=== PATIENT | female | born 1930 | race Caucasian/White ===

== ENCOUNTER 2016-08-25 09:08 | Emergency (ER) | payer OTHER, MEDICARE ==
[2016-08-25 09:26] VITALS: TEMP 97.7; BMI 21.3
--- NOTE | 2016-08-25 09:30 | PDOC ---
History of Present Illness <Kapil Barajas - Last Filed: 08/25/16 11:03> - General History Source: Patient, Family Exam Limitations: No Limitations - History of Present Illness Initial Comments: 08/25/16 11:15 The patient is an 85 year old female, accompanied by family, with no significant past medical history who presents for further evaluation of head pain for a couple days. The patient states that a couple of days ago she was getting out of bed when she slipped and hit her head on the floor. She reports right sided head and neck pain. The patient reports associated nausea and dizziness. The patient notes that she did not take anything at home to try and treat pain. PCP: Dr. Rahul Lima [phone] <Vel Lucas - Last Filed: 08/25/16 11:17> - General Chief Complaint: Injury Stated Complaint: FALL Past History - Past Medical History Cancer: Yes (breast) - Immunization History Immunization Up to Date: Yes - Psycho/Social/Smoking Cessation Hx Suicidal Ideation: No Smoking History: Never smoked <Kapil Barajas - Last Filed: 08/25/16 11:03> <Vel Lucas - Last Filed: 08/25/16 11:17> - Past Medical History Allergies/Adverse Reactions: Allergies Allergy/AdvReac Type Severity Reaction Status Date / Time No Known Allergies Allergy Verified 08/25/16 09:26 Home Medications: Ambulatory Orders B12 09/18/12 Calcium Carb/Vitamin D3/Vit K1 [Calcium + D Soft Chewable Tab] 1 each PO Loratadine [Claritin] 5 mg PO 09/18/12 Multivit-Min/FA/Lutein/Zeaxant [Icaps Mv Tablet] 1 each PO 09/18/12 Celia 128 09/18/12 Probiotics 09/18/12 Selenium 200 mcg PO capsule 09/18/12 Vit D 09/18/12 NK [No Known Home Medication] 07/24/15 Review of Systems - Review of Systems Able to Perform ROS?: Yes Comments:: 08/25/16 11:16 GENERAL/CONSTITUTIONAL: No fever or chills. No weakness. HEAD, EYES, EARS, NOSE AND THROAT: Yes head pain, neck pain. No change in vision. No ear pain or discharge. No sore throat. CARDIOVASCULAR: No chest pain or shortness of breath. RESPIRATORY: No cough, wheezing, or hemoptysis. GASTROINTESTINAL: Yes dizziness, nausea. No vomiting, diarrhea or constipation. GENITOURINARY: No dysuria, frequency, or change in urination. MUSCULOSKELETAL: No joint or muscle swelling or pain. No neck or back pain. SKIN: No rash NEUROLOGIC: No headache, vertigo, loss of consciousness, or change in strength/ sensation. ENDOCRINE: No increased thirst. No abnormal weight change. HEMATOLOGIC/LYMPHATIC: No anemia, easy bleeding, or history of blood clots. ALLERGIC/IMMUNOLOGIC: No hives or skin allergy. <Vel Lucas - Last Filed: 08/25/16 11:17> *Physical Exam - Vital Signs Last Vital Signs Temp Pulse Resp BP Pulse Ox 97.7 F 74 18 158/70 100 08/25/16 09:23 08/25/16 09:23 08/25/16 09:23 08/25/16 09:23 08/25/16 09:23 <Kapil Barajas - Last Filed: 08/25/16 11:03> - Vital Signs Last Vital Signs Temp Pulse Resp BP Pulse Ox 97.7 F 74 18 158/70 100 08/25/16 09:23 08/25/16 09:23 08/25/16 09:23 08/25/16 09:23 08/25/16 09:23 - Physical Exam Comments: 08/25/16 11:16 GENERAL: Awake, alert, and fully oriented, in no acute distress HEAD: (+) Small contusion behind the right ear. EYES: PERRLA, EOMI, sclera anicteric, conjunctiva clear ENT: Auricles normal inspection, hearing grossly normal, nares patent, oropharynx clear without exudates. Moist mucosa NECK: Normal ROM, supple, no lymphadenopathy, JVD, or masses LUNGS: Breath sounds equal, clear to auscultation bilaterally. No wheezes, and no crackles HEART: Regular rate and rhythm, normal S1 and S2, no murmurs, rubs or gallops ABDOMEN: Soft, nontender, normoactive bowel sounds. No guarding, no rebound. No masses EXTREMITIES: Normal range of motion, no edema. No clubbing or cyanosis. No cords, erythema, or tenderness NEUROLOGICAL: Cranial nerves II through XII grossly intact. Normal speech, normal gait SKIN: Warm, Dry, normal turgor, no rashes or lesions noted. <Vel Lucas - Last Filed: 08/25/16 11:17> ED Treatment Course - RADIOLOGY Radiograph Interpretation: 08/25/16 11:17 EXAM#: TYPE/EXAM: RESULT: [id number] CT/HEAD CT WITHOUT CONTRAST Clinical history : Head injury 2 days ago. Scalp contusion behind right ear. COMPARISON: MRI [address] scan 01/22/2011. Contiguous transaxial images are obtained from the skull base to the vertex without the intravenous use of iodinated contrast material. Sagittal and coronal reconstructions were performed. There are no areas of diminished or increased attenuation seen. There is no ventricular compression or extracerebral fluid collection seen. There is no evidence of a shift of the midline structures. Generalized involutional and periventricular white matter changes are noted. IMPRESSION: Normal noncontrast CT of the brain except for involutional and periventricular white matter changes. Reported By: Anthony Huang MD 08/25/16 1019 - Medications Given in the ED: ED Medications Discontinued Medications Generic Name Dose Route Start Last Admin Trade Name Freq PRN Reason Stop Dose Admin Ondansetron HCl 4 mg 08/25/16 09:33 08/25/16 09:35 Zofran Odt - SL 08/25/16 09:34 4 mg ONCE ONE Administration <Vel Lucas - Last Filed: 08/25/16 11:17> *DC/Admit/Observation/Transfer - Discharge Dispostion Admit: No - Attestations Physician Attestion: 08/25/16 09:30 I, Dr. Kapil Barajas, attest that this document has been prepared under my direction and personally reviewed by me in its entirety. I further attest, that it accurately reflects all work, treatment, procedures and medical decision -making performed by me. <Kapil Baraajs - Last Filed: 08/25/16 11:03> - Attestations Scribe Attestion: 08/25/16 11:16 Documentation prepared by Vel Lucas, acting as medical engineer for Kapil Barajas DO. <Vel Lucas - Last Filed: 08/25/16 11:17> Diagnosis at time of Disposition: Contusion of occipital region of scalp Qualifiers: Encounter type: initial encounter Qualified Code(s): S00.03XA - Contusion of scalp, initial encounter Blunt head trauma Qualifiers: Encounter type: initial encounter Qualified Code(s): S09.8XXA - Other specified injuries of head, initial encounter - Referrals Referrals: Rahul Lima MD [Primary Care Provider] - - Patient Instructions Printed Discharge Instructions: DI for Closed Head Injury, DI for Contusion Additional Instructions: Mrs Peña, So Sorry that you fell. I am happy that your CT Scan was read as normal. If you need anything or you have any problems feel free to return to us for care. Best- Dr. Kapil Barajas
[2016-08-25] MEDS ORDERED: ONDANSETRON *ODT* 4 MG TABLET ONE (09:31)
[2016-08-25] MEDS ORDERED: ONDANSETRON *ODT* 4 MG TABLET SL ONE (09:33)
[2016-08-25 12:04] VITALS: BP 149/82; PULSE 68
== END 2016-08-25 11:40 | disposition home or self-care (01) ==
LOC: JER 09:08
DX: S00.03XA Contusion of scalp, initial encounter (principal); W06.XXXA Fall from bed, initial encounter; Y93.89 Activity, other specified; Y92.122 Bedroom in nursing home as the place of occurrence of the external cause; Z85.3 Personal history of malignant neoplasm of breast
CPT/HCPCS: 70450-TC; 99281-25

== ENCOUNTER 2016-12-15 14:52 | Emergency (ER) | payer OTHER, MEDICARE ==
[2016-12-15 15:09] VITALS: BP 137/74; PULSE 73; TEMP 98.4; BMI 19.3
[2016-12-15] MEDS ORDERED: OXYCODONE/APAP 5/325MG COMBO TABLET ONE (16:29)
[2016-12-15] MEDS ORDERED: ACETAMINOPHEN 325 MG TABLET (FP) ONE (16:29)
[2016-12-15] MEDS ORDERED: ACETAMINOPHEN 325 MG TABLET (FP) PO ONE (16:34)
[2016-12-15] MEDS ORDERED: OXYCODONE/APAP 5/325MG COMBO TABLET PO ONE (16:34)
[2016-12-15] MEDS ORDERED: DIPHTH,PERTUSS(ACELL),TET 0.5 ML DISP.SYRIN IM ONE (16:34)
--- NOTE | 2016-12-15 18:04 | PDOC ---
History of Present Illness - General Chief Complaint: Injury Stated Complaint: INJURY Time Seen by Provider: 12/15/16 15:22 History Source: Patient Exam Limitations: No Limitations - History of Present Illness Initial Comments: 12/15/16 17:09 86-year-old female presents to the ED status post mechanical fall. Patient states was on her way to get her hair done when she tripped on uneven pavement landing on her right wrist and right face. Patient states had no LOC but required assistance to stand up and was ambulating at the scene. Patient was brought in by EMS with her right wrist and forearm splinted. Patient complaining of pain to the area and denies previous injury to the affected area. Patient also states unsure of her last tetanus and is also complaining of right cheek tenderness. Patient currently denies chest pain, shortness of breath , headache, visual changes, dizziness, or nausea. Occurred: reports: just prior to arrival Severity: reports: moderate Pain Location: reports: face, upper extremity Method of Injury: Yes: fall Modifying Factors: improves with: None Loss of Consciousness: no loss of consciousness Associated Symptoms (Fall): other Past History - Travel Traveled outside of the country in the last 30 days: No Close contact w/someone who was outside of country & ill: No - Past Medical History Allergies/Adverse Reactions: Allergies Allergy/AdvReac Type Severity Reaction Status Date / Time No Known Allergies Allergy Verified 08/25/16 09:26 Cancer: Yes (breast) - Immunization History Immunization Up to Date: Yes - Psycho/Social/Smoking Cessation Hx Suicidal Ideation: No Smoking History: Never smoked Have you smoked in the past 12 months: No Information on smoking cessation initiated: No Hx Alcohol Use: No Drug/Substance Use Hx: No Substance Use Type: None Patient Lives Alone: No Lives with/in: assisted living Trauma Specific PMHX - Complaint Specific PMHX Arthritis: No Back Injury: No Neck Injury: No Hx Sacro Iliac Joint Dysfunction: No Review of Systems - Review of Systems Able to Perform ROS?: Yes Constitutional: No: Symptoms Reported HEENTM: No: Symptoms Reported Respiratory: No: Symptoms reported Cardiac (ROS): No: Symptoms Reported ABD/GI: No: Symptoms Reported Musculoskeletal: Yes: Joint Pain (right wrist and right shoulder and right face) Integumentary: Yes: Bruising (rt face) Neurological: No: Symptoms reported Hematologic/Lymphatic: No: Symptoms Reported *Physical Exam - Vital Signs Last Vital Signs Temp Pulse Resp BP Pulse Ox 98.4 F 73 20 137/74 99 12/15/16 15:04 12/15/16 15:04 12/15/16 15:04 12/15/16 15:04 12/15/16 15:04 - Physical Exam General Appearance: Yes: Nourished, Appropriately Dressed. No: Apparent Distress HEENT: positive: EOMI, JOCE, TMs Normal (no hemotympanum), Pharynx Normal Neck: positive: Tender, Supple. negative: Decreased range of motion Respiratory/Chest: positive: Lungs Clear, Normal Breath Sounds. negative: Respiratory Distress, Accessory Muscle Use Cardiovascular: positive: Regular Rhythm, Regular Rate. negative: Murmur Gastrointestinal/Abdominal: positive: Soft. negative: Tenderness Extremity: positive: Normal Capillary Refill, Other (noted tenderness over anterior aspect of right shoulder without limited range of motion or crepitus). negative: Normal Range of Motion (noted depressed deformity to dorsal aspect of wrist. ), Pedal Edema Integumentary: positive: Swelling (right orbital floor ), Bruising (to right orbital floor and rt mandible. ), Other (noted 1 cm laceration to right upper lip without vermilion border involvement. ) Neurologic: positive: Motor Strength 5/5 (ambulaory) ED Treatment Course - RADIOLOGY Radiology Studies Ordered: Category Date Time Status CERVICAL SPINE CT W/O CONTR [CT] Stat CT Scan 12/15/16 16:[address] W/O CONTRAST [CT] Stat CT Scan 12/15/16 16:[address] WITHOUT CONTRAST [CT] Stat CT Scan 12/15/16 16:35 Ordered FOREARM- RIGHT [RAD] Stat Radiology 12/15/16 16:35 Ordered SHOULDER-RIGHT [RAD] Stat Radiology 12/15/16 16:35 Ordered WRIST- RIGHT [RAD] Stat Radiology 12/15/16 16:35 Ordered - Medications Given in the ED: ED Medications Discontinued Medications Generic Name Dose Route Start Last Admin Trade Name Freq PRN Reason Stop Dose Admin Acetaminophen 650 mg 12/15/16 16:34 12/15/16 16:49 Tylenol - PO 12/15/16 16:35 650 mg ONCE ONE Administration Diphtheria/Tetanus/Acell Pertussis 0.5 ml 12/15/16 16:34 12/15/16 17:19 Boostrix - IM 12/15/16 16:35 0.5 ml .ONCE ONE Administration Oxycodone/Acetaminophen 1 combo 12/15/16 16:34 12/15/16 16:49 Percocet 5/325 - PO 12/15/16 16:35 1 combo ONCE ONE Administration Medical Decision Making - Medical Decision Making 12/15/16 17:33 Pt post mechanical fall landing on her right wrist and right face. Patient with ecchymosis to right orbital floor and right mandible Along with the laceration to the right upper lip without vermilion border involvement. Patient with noted depressed deformity to the right wrist with tenderness to the dorsal aspect. Patient ordered for head CT, cervical CT, facial CT, tetanus, right forearm right shoulder and right wrist x-ray. Patient also ordered for 1 Percocet and 2 Tylenol. 12/15/16 18:37
--- NOTE | 2016-12-15 19:36 | PDOC ---
*Physical Exam - Vital Signs Last Vital Signs Temp Pulse Resp BP Pulse Ox 98.4 F 73 20 137/74 99 12/15/16 15:04 12/15/16 15:04 12/15/16 15:04 12/15/16 15:04 12/15/16 15:04 - Physical Exam General Appearance: Yes: Appropriately Dressed. No: Apparent Distress Neck: positive: Trachea midline, Supple Respiratory/Chest: positive: Lungs Clear, Normal Breath Sounds. negative: Respiratory Distress Cardiovascular: positive: Regular Rhythm, Regular Rate, S1, S2. negative: Edema Extremity: positive: Tender (right wrist), Swelling (right wrist). negative: Normal Range of Motion (decreased ROM of right wrist and flexion of 3rd and 4th digit of right hand) Integumentary: positive: Other (laceration to lateral upper lip) ED Treatment Course - Medications Given in the ED: ED Medications Discontinued Medications Generic Name Dose Route Start Last Admin Trade Name Freq PRN Reason Stop Dose Admin Acetaminophen 650 mg 12/15/16 16:34 12/15/16 16:49 Tylenol - PO 12/15/16 16:35 650 mg ONCE ONE Administration Diphtheria/Tetanus/Acell Pertussis 0.5 ml 12/15/16 16:34 12/15/16 17:19 Boostrix - IM 12/15/16 16:35 0.5 ml .ONCE ONE Administration Oxycodone/Acetaminophen 1 combo 12/15/16 16:34 12/15/16 16:49 Percocet 5/325 - PO 12/15/16 16:35 1 combo ONCE ONE Administration Medical Decision Making - Medical Decision Making Received patient from [facility]. CT of head, face and neck pending. Xrays of right wrist, forearm pending 12/15/16 21:23 CT of head, face and neck without acute pathology. 1 cm lac repair to right lateral upper lip. Irrigated with 50cc sterile water. Anesthesia with 2cc 2%lidocaine Site cleansed with chlorhexadine 5.0 sutures x2 placed in right upper lip Patient tolerated procedure well Xray wet read by me: minimally displaced right radial fracture. Closed reduction performed under traction. PERSONAL CHEF made Sugar tong splint applied with immobilized extremity placed in sling. Pt requesting discharge. She is refusing repeat imaging. PERSONAL CHEF made pt aware that official read of xrays are not needed after repeat films. Continues to refuse. Ortho f/u within 1 week. 12/15/16 22:24 *DC/Admit/Observation/Transfer Diagnosis at time of Disposition: Colles' fracture of right radius, initial encounter for closed fracture Qualifiers: Encounter type: initial encounter Qualified Code(s): S52.531A - Colles' fracture of right radius, initial encounter for closed fracture Laceration of lip without complication Qualifiers: Encounter type: initial encounter Qualified Code(s): S01.511A - Laceration without foreign body of lip, initial encounter - Discharge Dispostion Disposition: [facility] Admit: No - Prescriptions Prescriptions: Oxycodone HCl/Acetaminophen [Percocet 5-325 mg Tablet] 1 - 2 tab PO Q6H #20 tab MDD 8 - Referrals Referrals: Rahul Lima MD [Primary Care Provider] - Mariusz Moreau MD [Staff Physician] - - Patient Instructions Printed Discharge Instructions: DI for Wrist Fracture, DI for Laceration Repair Additional Instructions: Please call Dr Moreau at for appointment within 1 week. Take Percocet as prescribed for pain. Drink plenty of fluids. Return to the ER for increased pain, loss of feeling, change in color, of loss of movement in right forearm/hand or drainage from sutures or any other complaint.
== END 2016-12-15 22:51 ==
LOC: JER 14:52
PROC: 0CQ0XZZ Repair Upper Lip, External Approach (ICD-10-PCS; principal; 2016-12-15)
PROC: 2W3CX1Z Immobilization of Right Lower Arm using Splint (ICD-10-PCS; 2016-12-15)
PROC: 3E0234Z Introduction of Serum, Toxoid and Vaccine into Muscle, Percutaneous Approach (ICD-10-PCS; 2016-12-15)
DX: S52.531A Colles' fracture of right radius, initial encounter for closed fracture (principal); S01.511A Laceration without foreign body of lip, initial encounter; W18.39XA Other fall on same level, initial encounter; Y93.89 Activity, other specified; Y92.480 Sidewalk as the place of occurrence of the external cause; Y99.8 Other external cause status
CPT/HCPCS: 12011-25; 29125; 70450-TC; 70486-TC; 72125-TC; 73030-TC-RT; 73090-TC-RT; 73110-TC-RT; 90471; 90715; 99282-25

== ENCOUNTER 2018-03-01 11:27 | Emergency (ER) | payer OTHER, MEDICARE ==
[2018-03-01 11:41] VITALS: BMI 17.7
--- NOTE | 2018-03-01 11:57 | PDOC ---
Attending Attestation - HPI HPI: This patient is an 87 year old female with a PMHx of Breast Ca s/p unilateral mastectomy, mild dementia who was BIBA from [facility] assisted living for 3 days of nausea and vomiting.On Sunday she was given 8mg Zofran qd at urgent care but they didnt find anything necessarily wrong with her. She states she has been eating well and was able to keep her food down last night and this morning however she says that she has been vomiting 3-5x/day. The patient states the zofran has not helped very much and she has been persistently nauseous despite taking it once a day. She also reports constipation for the past month. Allergies: dust mites She denies any fevers, body aches, URI sx, cough, nasal congestion, recent infections, neck pain, or diarrhea. No other urinary or other bowel complaints. <Chantel Myers - Last Filed: 03/01/18 12:45> - Physicial Exam PE: 03/03/18 10:13 Agree with resident exam. Patient is alert and in no acute distress. Lungs are clear. Heart has regular rate and rhythm. Abdomen is soft, non tender and non distended. - Medical Decision Making 03/03/18 10:14 Pt presents to the ED complaining of nausea and vomiting that have been persistent for 4 days. Denies other complaints. Abdominal exam is benign. Labs are within normal limits except for ketones in the urine. CT is negative. Patient feels improved in the ED and is tolerating PO after zofran and reglan. Daughter strongly desires to take the patient home. She understands that we do not know why her mother is vomiting and that she needs follow up. She will follow up with her PMD and gastroneterology. She will return to the ED for persistent or worsening symptoms. <Анна Gore - Last Filed: 03/03/18 10:16>
--- NOTE | 2018-03-01 12:15 | PDOC ---
History of Present Illness <Chantel Myers - Last Filed: 03/01/18 14:06> - General History Source: Patient Exam Limitations: No Limitations - History of Present Illness Initial Comments: Mrs. Kellogg is a relatively healthy 87 yo F with a pmh hx of Breast Ca s/p unilateral mastectomy and a childhood hx of Asthma who presents from [address] [place] [address] to the [facility] ER with the CC of nausea and vomiting since Sunday. She has been vomiting 3-5 times a day which she describes as yellow in color. She denies any blood or bile in the vomit. She went to the urgent care clinic on Sunday who gave her 8 mg of oral zofran to take once a day for the nausea and vomiting. The patient states the zofran has not helped very much and she has been persistently nauseous despite taking it once a day. She endorses mild constipation for the past few weeks but denies any diarrhea. She denies any recent fevers, chills, or infections. Denies chest pain, SOB, or difficulty breathing. Denies neck pain or blurry vision. Denies abdominal pain. Denies dysuria, frequency, or urgency. PCP: Dr. Thacker Allergies: Dust mites Social Hx: Drinks less than a cup of wine with dinners twice a week. Denies cigarette or illicit drug usage. <Yassine Reyes - Last Filed: 03/01/18 15:54> - General Chief Complaint: Nausea/Vomiting Stated Complaint: NAUSEA Time Seen by Provider: 03/01/18 11:54 Past History <Chantel Myers - Last Filed: 03/01/18 14:06> - Past Medical History Cancer: Yes (breast) COPD: No Dementia: Yes - Immunization History Immunization Up to Date: Yes - Suicide/Smoking/Psychosocial Hx Smoking History: Unknown if ever smoked Have you smoked in the past 12 months: No Hx Alcohol Use: No Drug/Substance Use Hx: No Substance Use Type: None <Yassine Reyes - Last Filed: 03/01/18 15:54> - Past Medical History Allergies/Adverse Reactions: Allergies Allergy/AdvReac Type Severity Reaction Status Date / Time No Known Allergies Allergy Verified 03/01/18 11:35 Home Medications: Ambulatory Orders Memantine HCl [Namenda Xr] 28 mg PO DAILY 03/01/18 Metoclopramide HCl [Reglan] 10 mg PO PRN #10 tablet 03/01/18 Mirabegron [Myrbetriq] 25 mg PO DAILY 03/01/18 Montelukast Sodium [Singulair] 10 mg PO HS 03/01/18 Ondansetron [Zofran Odt -] 4 mg SL TID PRN 03/01/18 Review of Systems - Review of Systems Comments:: CONSTITUTIONAL: Absent: fever, chills, diaphoresis, generalized weakness, malaise, loss of appetite HEENT: Present: Left eye pruritis. Absent: rhinorrhea, nasal congestion, throat pain, throat swelling, difficulty swallowing, mouth swelling, ear pain, eye pain, visual Changes CARDIOVASCULAR: Absent: chest pain, syncope, palpitations, irregular heart rate, lightheadedness , peripheral edema RESPIRATORY: Absent: cough, shortness of breath, dyspnea with exertion, orthopnea, wheezing, stridor, hemoptysis GASTROINTESTINAL: Present: Nausea, vomiting, constipation. Absent: abdominal pain, abdominal distension, diarrhea, melena, hematochezia GENITOURINARY: Absent: dysuria, frequency, urgency, hesitancy, hematuria, flank pain, genital pain MUSCULOSKELETAL: Absent: myalgia, arthralgia, joint swelling SKIN: Absent: rash, itching, pallor HEMATOLOGIC/IMMUNOLOGIC: Absent: easy bleeding, easy bruising, lymphadenopathy, frequent infections ENDOCRINE: Absent: unexplained weight gain, unexplained weight loss, heat intolerance, cold intolerance NEUROLOGIC: Absent: headache, focal weakness or paresthesias, dizziness, unsteady gait, seizure, mental status changes, bladder or bowel incontinence PSYCHIATRIC: Absent: anxiety, depression, suicidal or homicidal ideation, hallucinations. <Yassine Reyes - Last Filed: 03/01/18 15:54> *Physical Exam - Vital Signs Last Vital Signs Temp Pulse Resp BP Pulse Ox 98.4 F 77 18 153/75 97 03/01/18 11:40 03/01/18 11:40 03/01/18 11:40 03/01/18 11:40 03/01/18 11:40 <Chantel Myers - Last Filed: 03/01/18 14:06> - Vital Signs Last Vital Signs Temp Pulse Resp BP Pulse Ox 98.4 F 77 18 153/75 97 03/01/18 11:40 03/01/18 11:40 03/01/18 11:40 03/01/18 11:40 03/01/18 11:40 - Physical Exam Comments: GENERAL: Well developed, well nourished. Awake and alert. No acute distress. HEENT: There is mild greenish discharge on the lower left eye. No conjunctival injection. Normocephalic, atraumatic. PERRLA, EOMI. No conjunctival pallor. Sclera are non- icteric. Moist mucous membranes. Oropharynx is clear. NECK: Supple. Full ROM. No JVD. No thyromegaly. No lymphadenopathy. CARDIOVASCULAR: Regular rate and rhythm. No murmurs, rubs, or gallops. Distal pulses are 2+ and symmetric. PULMONARY: No evidence of respiratory distress. Lungs clear to auscultation bilaterally. No wheezing, rales or rhonchi. ABDOMINAL: Soft. Non-tender. Non-distended. No rebound or guarding. No organomegaly. Normoactive bowel sounds. MUSCULOSKELETAL Normal range of motion at all joints. There are a few bony deformities on her hands. No bony tenderness. No CVA tenderness. EXTREMITIES: No cyanosis. No clubbing. No edema. No calf tenderness. SKIN: Warm and dry. Normal capillary refill. No rashes. No jaundice. NEUROLOGICAL: Alert, awake, appropriate. Cranial nerves 2-12 intact. No deficits to light touch in face, upper extremities and lower extremities. No motor deficits in the in face, upper extremities and lower extremities. Normal speech. Gait is normal without ataxia. PSYCHIATRIC: Cooperative. Good eye contact. Appropriate mood and affect. <Yassine Reyes - Last Filed: 03/01/18 15:54> ED Treatment Course - LABORATORY CBC & Chemistry Diagram: 03/01/18 12:31 03/01/18 12:31 - ADDITIONAL ORDERS Additional order review: Laboratory Results 03/01/18 03/01/18 12:31 12:30 Sodium 130 L Potassium 3.9 Chloride 94 L Carbon Dioxide 28 Anion Gap 9 BUN 12 Creatinine 0.8 Creat Clearance w eGFR > 60 Random Glucose 101 Calcium 8.8 Total Bilirubin 0.5 AST 31 ALT 28 Alkaline Phosphatase 70 Total Protein 7.2 Albumin 3.8 Lipase 98 Urine Color Yellow Urine Appearance Clear Urine pH 6.0 Ur Specific Arnett 1.016 Urine Protein Negative Urine Glucose (UA) Negative Urine Ketones Trace H Urine Blood Negative Urine Nitrite Negative Urine Bilirubin Negative Urine Urobilinogen Negative Ur Leukocyte Esterase Trace Urine WBC (Auto) 8 Urine RBC (Auto) None Ur Epithelial Cells Rare Urine Bacteria Many Hyaline Casts 1 Urine Mucus Many 03/01/18 12:31 RBC 4.38 MCV 87.2 MCHC 33.4 RDW 13.1 MPV 9.2 Neutrophils % 71.4 Lymphocytes % 19.4 Monocytes % 8.4 Eosinophils % 0.2 Basophils % 0.6 - RADIOLOGY Radiograph Interpretation: CT Abdomen Pelvis w/o contrast Impression: 1. Mild atelectatic changes at both lung bases with a left lower lobe peripheral nodule. 2. Parapelvic right renal cyst and left upper pole angiomyolipoma. 3. Slightly distended gallbladder without evidence of cholelithiasis or biliary ductal dilatation. 4. Fecal retention, no acute pathology within the abdomen or pelvis. Reported By: Enrique Jefferson MD 03/01/18 4217 - Medications Given in the ED: ED Medications Discontinued Medications Generic Name Dose Route Start Last Admin Trade Name Freq PRN Reason Stop Dose Admin Ondansetron HCl 4 mg 03/01/18 12:16 03/01/18 12:35 Zofran Injection IVPUSH 03/01/18 12:17 4 mg ONCE ONE Administration Sodium Chloride 1,000 ml 03/01/18 12:16 03/01/18 12:35 Normal Saline - IV 03/01/18 12:17 1,000 ml ONCE ONE Administration <Chantel Myesr - Last Filed: 03/01/18 14:06> - LABORATORY CBC & Chemistry Diagram: 03/01/18 12:31 03/01/18 12:31 <Yassine Reyes - Last Filed: 03/01/18 15:54> Medical Decision Making - Medical Decision Making 87 yo F w/ no sig pmh hx presents with nausea, vomiting - NBNB. She went to an urgent care clinic who gave her zofran but it hasn't helped much. DD includes but not limited to: Viral illness, gastroenteritis, medication side effect, UTI, pancreatitis, SBO, ischemic bowel, conjunctivitis Plan: Cbc, Cmp, lipase, ua/uc, CTAP, IVF - NS, Zofran, re-assess. Cbc, ua, lipase - unremakable and WNL. Cmp notable for mild hyponatremia at 130 and mild hypochloremia at 94 likely a result of vomiting. CTAP - unremarkable. Did not show explanation for acute nausea/vomiting. Patient still feels nauseous after zofran. EKG showed no QT elongation. -Will try Reglan than PO challenge patient. Patient feels significantly better after reglan, ate a sandwich and drank fluids without difficulty or nausea. We will DC patient with PCP follow up and return precautions. <Yassine Reyes - Last Filed: 03/01/18 15:54> *DC/Admit/Observation/Transfer <Chantel Myers - Last Filed: 03/01/18 14:06> - Discharge Dispostion Decision to Admit order: No <Yassine Reyes - Last Filed: 03/01/18 15:54> Diagnosis at time of Disposition: Nausea & vomiting - Discharge Dispostion Disposition: HOME Condition at time of disposition: Improved - Prescriptions Prescriptions: Metoclopramide HCl [Reglan] 10 mg PO PRN #10 tablet - Referrals Referrals: Soham Larsen MD [Staff Physician] - - Patient Instructions Printed Discharge Instructions: DI for Nausea -- Adult, DI for Vomiting -- Adult Additional Instructions: You came into the ER with nausea and vomiting. We looked at your urine and blood and found no source of infection. We did a cat scan and saw no problems which would explain your nausea and vomiting. We also did an electrocardiogram and found no signs that her heart wasn't getting enough oxygen. Please make sure to drink lots of fluids and make sure to eat a good amount. Please schedule a follow up appointment with your primary care doctor in the next 3 to 5 days to make sure you are getting better and feeling better and no longer feeling nauseous or vomiting. We are sending a medication called reglan to your pharmacy. Please make sure to go and pick it up. Please come back to the ER if your vomiting becomes worse, you develop a fever, have severe pain, or any other new or worsening concerns. Thank you for coming to the [facility] ER. We hope you feel better soon! Print Language: MAORI
[2018-03-01] MEDS ORDERED: SODIUM CHLORIDE 0.9% 500 ML INFUS.BAG IV ONE (12:16)
[2018-03-01] MEDS ORDERED: ONDANSETRON 4 MG/2 ML VIAL IVPUSH ONE (12:16)
[2018-03-01] MEDS ORDERED: ONDANSETRON 4 MG/2 ML VIAL ONE (12:25)
[2018-03-01 12:40] LABS: BASO % 0.6 % (0-2.0); EOS % 0.2 % (0-4.5); HEMATOCRIT 38.2 % (32.4-45.2); HEMOGLOBIN 12.8 GM/dL (10.7-15.3); LYMPH % 19.4 % (8-40); MCH 29.1 pg (25.7-33.7); MCHC 33.4 g/dl (32.0-36.0); MEAN CELL VOLUME 87.2 fl (80-96); MEAN PLT VOLUME 9.2 fl (7.5-11.1); MONO % 8.4 % (3.8-10.2); NEUT % 71.4 % (42.8-82.8); PLATELET COUNT 159 K/MM3 (134-434); RBC 4.38 M/mm3 (3.60-5.2); RDW 13.1 % (11.6-15.6); WHITE BLOOD COUNT 5.8 K/mm3 (4.0-10.0)
[2018-03-01 12:57] LABS: URINE APPEARANCE CLEAR; URINE BILIRUBIN NEGATIVE (<2.0 mg/dL); URINE COLOR YELLOW; URINE GLUCOSE (UA) NEGATIVE (NEGATIVE); URINE KETONE TRACE (NEGATIVE); URINE LEUK ESTERASE TRACE (NEGATIVE); URINE NITRITE NEGATIVE (NEGATIVE); URINE PROTEIN NEGATIVE (NEGATIVE); URINE UROBILINOGEN NEGATIVE mg/dL (0.2-1.0)
[2018-03-01 13:10] LABS: ALBUMIN 3.8 g/dl (3.4-5.0); ALK PHOS 70 U/L (45-117); ANION GAP 9 MMOL/L (8-16); BILIRUBIN,TOTAL 0.5 mg/dL (0.2-1); BLOOD UREA NITROGEN 12 mg/dL (7-18); CALCIUM 8.8 mg/dL (8.5-10.1); CHLORIDE 94 mmol/L (98-107); CO2 28 mmol/L (21-32); CREATININE 0.8 mg/dL (0.55-1.3); GLUCOSE,RANDOM 101 mg/dL (74-106); LIPASE 98 U/L (73-393); POTASSIUM 3.9 mmol/L (3.5-5.1); SGOT/AST 31 U/L (15-37); SGPT/ALT 28 U/L (13-61); SODIUM 130 mmol/L (136-145); TOT PROT 7.2 g/dl (6.4-8.2)
[2018-03-01 13:33] LABS: EPI CELLS RARE /HPF (FEW); URINE BACTERIA MANY /hpf (NONE SEEN); URINE HYALINE CAST 1 /lpf; URINE MUCUS MANY
[2018-03-01] MEDS ORDERED: METOCLOPRAMIDE HCL INJECTION 10 MG/2 ML VIAL IVPUSH ONE (14:57)
[2018-03-01] MEDS ORDERED: METOCLOPRAMIDE HCL INJECTION 10 MG/2 ML VIAL ONE (15:01)
[2018-03-01 15:55] VITALS: BP 132/80; PULSE 80; TEMP 98.3
--- NOTE | 2018-03-02 10:27 | EKG ---
Test Reason : Blood Pressure : / mmHG Vent. Rate : 068 BPM Atrial Rate : 068 BPM P-R Int : 138 ms QRS Dur : 070 ms QT Int : 416 ms P-R-T Axes : 099 024 035 degrees QTc Int : 442 ms POOR DATA QUALITY, INTERPRETATION MAY BE ADVERSELY AFFECTED NORMAL SINUS RHYTHM JUNCTIONAL ST DEPRESSION, PROBABLY NORMAL NO PREVIOUS ECGS AVAILABLE Confirmed by MANUEL GREENWOOD MD ([id number]) on 03/02/2018 10:26:56 AM Referred By: Confirmed By:MANUEL GREENWOOD MD
== END 2018-03-01 16:25 | disposition home or self-care (01) ==
LOC: JER 11:27
PROC: 3E033GC Introduction of Other Therapeutic Substance into Peripheral Vein, Percutaneous Approach (ICD-10-PCS; principal; 2018-03-01)
PROC: 3E033GC Introduction of Other Therapeutic Substance into Peripheral Vein, Percutaneous Approach (ICD-10-PCS; 2018-03-01)
DX: R11.2 Nausea with vomiting, unspecified (principal); F03.90 Unspecified dementia, unspecified severity, without behavioral disturbance, psychotic disturbance, mood disturbance, and anxiety; Z85.3 Personal history of malignant neoplasm of breast; Z90.10 Acquired absence of unspecified breast and nipple
CPT/HCPCS: 36415; 74176-TC; 80053; 81003; 81015; 83690; 85025; 87086; 93005; 93010; 96374; 96375; 99282-25